=== PATIENT | female | born 1945 | race Caucasian/White ===

== ENCOUNTER 2025-01-15 13:33 | Inpatient (IN) | payer MEDICARE, MEDICAID ==
[~2025-01-15] VITALS: Ht 154.9 cm; Wt 49.9 kg
[2025-01-15 14:44] LABS: BASOPHILS % (AUTO) 0.3 % (0.0-2.0); EOSINOPHILS % (AUTO) 0.5 % (0.0-6.0); HEMATOCRIT 40 % (33-45); HEMOGLOBIN 13.3 g/dL (11.5-14.8); LYMPHOCYTES # (AUTO) 1.2 K/uL (0.8-4.8); LYMPHOCYTES % (AUTO) 12.3 % (20.0-44.0); MEAN CORPUSCULAR HEMOGLOBIN 30 PG (26.0-33.0); MEAN CORPUSCULAR HGB CONC 34 g/dl (31.0-36.0); MEAN CORPUSCULAR VOLUME 90 fL (82-100); MONOCYTES # (AUTO) 0.9 K/uL (0.1-1.30); MONOCYTES % (AUTO) 9.5 % (2.0-12.0); NEUTROPHILS # (AUTO) 7.7 K/uL (1.8-8.9); NEUTROPHILS % (AUTO) 77.4 % (43.0-81.0); PLATELET COUNT (AUTO) 346 K/uL (150-450); RED BLOOD CELL COUNT(AUTO) 4.38 MIL/uL (4.0-5.2); RED CELL DISTRIBUTION WIDTH 13.5 % (11.5-15.0); WHITE BLOOD COUNT (AUTO) 9.9 K/uL (4.3-11.0)
[2025-01-15 14:45] LABS: APPEARANCE,URINE CLEAR (CLEAR); BILIRUBIN,URINE Negative (NEGATIVE); BLOOD, URINE Moderate Ery/uL (NEGATIVE); COLOR,URINE YELLOW (YELLOW); KETONES,URINE Negative (NEGATIVE); LEUKOCYTE ESTERASE ,URINE Small (NEGATIVE); PH,URINE 5.5 (5.0-8.0); PROTEIN,URINE 30 mg/dl (NEGATIVE); UGLUCOSE Negative (NEGATIVE); UROBILINOGEN,URINE 0.2 EU/dL (0.2)
[2025-01-15 14:49] LABS: NITRITE, URINE NEGATIVE (NEGATIVE)
[2025-01-15 14:53] LABS: CALCIUM, SERUM 9.1 mg/dL (8.5-10.1); CARBON DIOXIDE 27 mmol/L (21-32); CHLORIDE 102 mmol/L (98-107); CREATININE 1.1 mg/dL (0.6-1.3); GLUCOSE 231 mg/dL (74-106); POTASSIUM 4.7 mmol/L (3.5-5.1); SODIUM SERUM 135 mmol/L (136-145); UREA NITROGEN, BLOOD 40 mg/dL (7-18)
[2025-01-15 14:53] LABS: AMPHETAMINE, URINE NEGATIVE (NEGATIVE); BARBITURATE, URINE NEGATIVE (NEGATIVE); BENZODIAZEPINE, URINE NEGATIVE (NEGATIVE); CANNABINOID, URINE NEGATIVE (NEGATIVE); COCCAINE, URINE NEGATIVE (NEGATIVE); OPIATE, URINE NEGATIVE (NEGATIVE); PHENCYCLIDINE SCREEN,URINE NEGATIVE (NEGATIVE)
[2025-01-15 14:59] LABS: ALANINE AMINOTRANSFERASE 31 U/L (12-78); ALBUMIN 3.4 g/dL (3.4-5.0); ALCOHOL, BLOOD < 3 mg/dL (0-10); ALKALINE PHOSPHATASE 127 U/L (46-116); ASPARTATE AMINOTRANSFERASE 21 U/L (15-37); BILIRUBIN,DIRECT 0.1 mg/dL (0.0-0.2); BILIRUBIN,TOTAL 0.5 mg/dL (0.2-1.0); TOTAL PROTEIN, SERUM 7.4 g/dL (6.4-8.2)
[2025-01-15 15:00] LABS: ACETAMINOPHEN < 10 ug/ml (10-30); SALICYLATE 1.8 mg/dL (2.8-20.0)
[2025-01-15 15:43] LABS: ADD URINE CULTURE YES; BACTERIA,URINE Few /HPF (None Seen)
[2025-01-15] MEDS ORDERED: ASPI-1169 PO (16:07)
[2025-01-15] MEDS ORDERED: QUET50TA PO (16:07)
[2025-01-15] MEDS ORDERED: DONE10TA11 PO (16:07)
[2025-01-15] MEDS ORDERED: LEVO112T2 PO (16:07)
[2025-01-15] MEDS ORDERED: MELA3TAB41 PO (16:07)
[2025-01-15] MEDS ORDERED: HYDR-4303 PO (16:07)
[2025-01-15] MEDS ORDERED: SENN8.6T19 PO (16:07)
[2025-01-15] MEDS ORDERED: DIVA125C2 PO (16:07)
[2025-01-15] MEDS ORDERED: LINA5TAB PO (16:07)
[2025-01-15] MEDS: CEPHALEXIN MONOHYDRATE 500 MG CAPSULE PO ONE (17:00)
[2025-01-15 20:02] VITALS: BP 152/70; TEMP 97.7; O2SAT 95
[2025-01-15] MEDS ORDERED: MAGNESIUM HYDROXIDE 30 ML UDC PO PRN (20:30)
[2025-01-15] MEDS ORDERED: ACETAMINOPHEN 325 MG TABLET PO PRN (20:30)
[2025-01-15] MEDS ORDERED: LORAZEPAM 0.5 MG TABLET PO PRN ×2 (20:30)
[2025-01-15] MEDS ORDERED: TEMAZEPAM 7.5 MG CAPSULE PO PRN (20:30)
[2025-01-15] MEDS ORDERED: MAG HYDROX/AL HYDROX/SIMETH 30 ML UDC PO PRN (20:30)
[2025-01-15] MEDS: BLOOD SUGAR DIAGNOSTIC 1 EACH STRIP IN ONE (21:32)
[2025-01-15] MEDS: SENNOSIDES 8.6 MG TABLET PO SCH (22:27)
[2025-01-15] MEDS: DONEPEZIL 5 MG TABLET PO SCH (22:27)
[2025-01-15] MEDS: TEMAZEPAM 7.5 MG CAPSULE PO PRN (22:30)
[2025-01-16 08:00] VITALS: BP 160/62; TEMP 98.1; O2SAT 98
[2025-01-16 08:28] LABS: ALBUMIN 3.3 g/dL (3.4-5.0); BILIRUBIN,TOTAL 0.6 mg/dL (0.2-1.0); CALCIUM, SERUM 9.4 mg/dL (8.5-10.1); CREATININE 0.8 mg/dL (0.6-1.3); POTASSIUM 4.2 mmol/L (3.5-5.1); TOTAL PROTEIN, SERUM 6.8 g/dL (6.4-8.2)
[2025-01-16 08:30] LABS: CHOLESTEROL 209 mg/dL (<200); HDL CHOLESTEROL 90 mg/dL (40-60); LDL 102 mg/dL (0-99); TRIGLYCERIDES 66 mg/dL (30-150)
[2025-01-16] MEDS: LEVOTHYROXINE SODIUM 112 MCG TABLET PO SCH (09:38)
[2025-01-16] MEDS: LINAGLIPTIN 5 MG TABLET PO SCH (09:38)
[2025-01-16] MEDS: Z GUARD REMEDY 4 OZ OINT TP SCH (09:38)
[2025-01-16] MEDS: ASPIRIN 81 MG TAB.CHEW PO SCH (09:39)
[2025-01-16] MEDS ORDERED: OLANZAPINE ZYDIS 5 MG TAB.RAPDIS PO PRN (11:30)
[2025-01-16] MEDS: DIVALPROEX SODIUM 125 MG TABLET.DR PO SCH (12:23)
[2025-01-16 15:49] VITALS: BP 165/62; TEMP 97.8; O2SAT 98
[2025-01-16] MEDS: CEPHALEXIN MONOHYDRATE 500 MG CAPSULE PO SCH (21:00)
[2025-01-16 21:03] VITALS: BP 129/54; TEMP 97.9; O2SAT 98
[2025-01-16] MEDS: OLANZAPINE 2.5 MG TABLET PO SCH (21:50)
[2025-01-17 08:00] VITALS: BP 129/66; TEMP 97.5; O2SAT 95
[2025-01-17] MEDS: NICOTINE PATCH (14MG) 14 MG PATCH.TD24 TD SCH (09:00)
[2025-01-17 16:00] VITALS: BP 126/69; TEMP 97.7; O2SAT 98
[2025-01-17] MEDS: DIVALPROEX SODIUM 125 MG TABLET.DR PO SCH (19:30)
[2025-01-17 20:00] VITALS: BP 126/57; TEMP 98.6; O2SAT 96
[2025-01-18 08:00] VITALS: BP 141/61; TEMP 97.7; O2SAT 98
[2025-01-18 16:00] VITALS: BP 139/61; TEMP 98.7; O2SAT 96
[2025-01-18 20:00] VITALS: BP 122/70; TEMP 98.6; O2SAT 97
[2025-01-19 08:00] VITALS: BP 138/82; TEMP 97.8; O2SAT 99
[2025-01-19 16:00] VITALS: BP 100/50; TEMP 98.7; O2SAT 98
[2025-01-19 20:00] VITALS: BP 122/55; TEMP 97.9; O2SAT 97
[2025-01-20 08:00] VITALS: BP 178/72; TEMP 97.9; O2SAT 98
[2025-01-20 16:00] VITALS: BP 120/60; TEMP 98.7; O2SAT 98
[2025-01-20 20:47] VITALS: BP 113/72; TEMP 98.6; O2SAT 98
[2025-01-21 08:26] VITALS: BP 161/71; TEMP 98.7; O2SAT 100
[2025-01-21 10:17] VITALS: BP 127/53
[2025-01-21 16:57] VITALS: BP 124/56; TEMP 97.8; O2SAT 99
[2025-01-21 20:50] VITALS: BP 121/70; TEMP 98.2; O2SAT 99
[2025-01-22 08:00] VITALS: BP 161/68; TEMP 98.9; O2SAT 99
[2025-01-22 16:00] VITALS: BP 121/47; TEMP 98.7; O2SAT 99
[2025-01-22 19:36] VITALS: BP 134/54; TEMP 98.5; O2SAT 99
[2025-01-23 08:00] VITALS: BP 132/56; TEMP 98.7; O2SAT 99
== END 2025-01-23 16:17 | DRG 885 ==
LOC: ER 13:37 → GPS 18:11
PROVIDERS: ADMIT Psychiatry & Neurology Psychosomatic Medicine; ATTEND Nurse Practitioner Acute Care
DX: F39 Unspecified mood [affective] disorder (principal); N18.9 Chronic kidney disease, unspecified; F02.84 Dementia in other diseases classified elsewhere, unspecified severity, with anxiety; N39.0 Urinary tract infection, site not specified; E44.1 Mild protein-calorie malnutrition; F02.83 Dementia in other diseases classified elsewhere, unspecified severity, with mood disturbance; F02.82 Dementia in other diseases classified elsewhere, unspecified severity, with psychotic disturbance; F29 Unspecified psychosis not due to a substance or known physiological condition; I12.9 Hypertensive chronic kidney disease with stage 1 through stage 4 chronic kidney disease, or unspecified chronic kidney disease; G30.9 Alzheimer's disease, unspecified; E86.0 Dehydration; E11.22 Type 2 diabetes mellitus with diabetic chronic kidney disease; Z71.6 Tobacco abuse counseling; F17.210 Nicotine dependence, cigarettes, uncomplicated; E88.09 Other disorders of plasma-protein metabolism, not elsewhere classified; E03.9 Hypothyroidism, unspecified; Z20.822 Contact with and (suspected) exposure to COVID-19; F41.9 Anxiety disorder, unspecified; B96.20 Unspecified Escherichia coli [E. coli] as the cause of diseases classified elsewhere; Z73.6 Limitation of activities due to disability; Z68.20 Body mass index [BMI] 20.0-20.9, adult
CPT/HCPCS: 36415; 70450-TC; 80048-TC; 80053-TC; 80061-TC; 80076-TC; 80164-TC; 81001; 82962-TC; 84484-TC; 85025-TC; 87081-TC; 87086-TC; 87186-TC; 97110-TC; 97116-TC; 97530-TC; G0480